=== PATIENT | female | born 1955 | race Caucasian/White ===

== ENCOUNTER 2017-01-09 06:20 | Emergency (ER) | payer OTHER ==
--- NOTE | ~2017-01-09 | CR63 ---
[facility] A Service of [facility] & [facility] RADIOLOGY TEXT RESULTS PATIENT: ELLA HALL LOCATION: [facility] : 55 UNIT #: [id number] AGE: [address]: Nithin Hansen MD SEX: F ORDER DR: [id number] [facility] [address] [place], [place] [address] [id number] MR#: [id number] Acc #: [id number] NAME: ELLA HALL : 1955 SEX: F STUDY DATE/TIME: 01/09/2017 7:54 UNIT: [facility] ROOM: STUDY DESCRIPTION: CR Chest 2 View Attending Physician: Nithin Hansen M.D. Ordering Physician: Nithin Hansen M.D. Primary Care Physician: Primary Care Physician No MEDICAL IMAGING REPORT This report is preliminary unless electronic signature is present EXAM 2 views of the chest COMPARISON None INDICATION 61-year-old female with chest pain and dyspnea today. History of hypertension and diabetes. FINDINGS The heart size is within normal limits. There is tortuosity of the thoracic aorta. Minimal band-like opacity in the left lung base favors atelectasis. This could potentially also represent scarring. No evidence of pneumothorax, pleural effusion or acute pneumonia. IMPRESSION No acute radiographic abnormality. Minimal scarring versus atelectasis in the left lung base. Dictated by... Luis Manuel Alston M.D. THIS IS AN ELECTRONICALLY VERIFIED REPORT Luis Manuel Alston M.D. at 01/17/2017 1:12 PM [place] TD: 01/09/2017 11:24 JOB #: [id number] MEDICAL IMAGING REPORT Page 1 of 1 COPY
[~2017-01-09 06:20] MED LIST: CRESTOR; FISH OIL300 MG; M.V.I. ADULT10 ML; METFORMIN HCL500 M1; PRILOSEC
== END 2017-01-09 09:02 | disposition home or self-care (01) ==
LOC: CED 06:20
DX: M54.6 Pain in thoracic spine (principal); E11.9 Type 2 diabetes mellitus without complications; I10 Essential (primary) hypertension; Z90.710 Acquired absence of both cervix and uterus; Z88.8 Allergy status to other drugs, medicaments and biological substances; Z90.5 Acquired absence of kidney; Z88.5 Allergy status to narcotic agent; Z79.84 Long term (current) use of oral hypoglycemic drugs
CPT/HCPCS: 71020; 99283